=== PATIENT | male | born 1975 | race Caucasian/White ===

== ENCOUNTER 2020-02-25 14:52 | Emergency (ER) | payer SELFPAY ==
[~2020-02-25] VITALS: Ht 172.7 cm; Wt 74.8 kg
[2020-02-25 14:56] VITALS: BP 166/116
[2020-02-25] MEDS ORDERED: FAMOTIDINE 20 MG TAB PO ONE (15:05)
[2020-02-25] MEDS ORDERED: LIDOCAINE VISCOUS 2% 20 ML UDC PO ONE (15:05)
[2020-02-25] MEDS ORDERED: ALUMINUM HYD/MAG/SIMETHICONE 30 ML UDC PO ONE (15:05)
--- NOTE | 2020-02-25 15:10 | NUR ---
PT C/O OF BURNING SENSATION TO UPPER ABD AREA X 2 DAYS. DENIES N/V, NO DIARRHEA. NO TENDERNESS UPON PALPATION, ABD SOUNDS WNL TO ALL QUADRANTS. MED HX OF HTN. PT IN BED IN LOWEST POSITION SIDE RAIL UP X 1. NKA MED HX - HTN
[2020-02-25 16:28] LABS: APPEARANCE,URINE CLEAR (CLEAR); BILIRUBIN,URINE NEGATIVE (NEGATIVE); BLOOD, URINE 1+ (NEGATIVE); COLOR,URINE YELLOW (YELLOW); LEUKOCYTE ESTERASE ,URINE NEGATIVE (NEGATIVE); NITRITE, URINE NEGATIVE (NEGATIVE); UGLUCOSE NEGATIVE (NEGATIVE)
--- NOTE | 2020-02-25 16:53 | NUR ---
PAIN IS NOW /
[2020-02-25 16:59] LABS: WBC,URINE 0-5 /HPF (0-5)
--- NOTE | 2020-02-25 17:00 | NUR ---
WAITING ON LABS PRIOR RO DISCHARGE, LAB WAS CALLED. PT RESTING COMFORTABLY AT THIS TIME
[2020-02-25 17:20] VITALS: BP 174/107
--- NOTE | 2020-02-25 17:20 | NUR ---
Patient discharged with v/s stable. Written and verbal after care instructions given and explained. Patient alert, oriented and verbalized understanding of instructions. Ambulatory with steady gait. All questions addressed prior to discharge. ID band removed. Patient advised to follow up with PMD. Rx of PEPCID AND MYLANTA given. Patient educated on indication of medication including possible reaction and side effects. Opportunity to ask questions provided and answered.
== END 2020-02-25 17:20 | disposition home or self-care (01) ==
LOC: MED 14:52
DX: R10.13 Epigastric pain (principal); R19.7 Diarrhea, unspecified; R31.9 Hematuria, unspecified
CPT/HCPCS: 81001; 87086; 99283